=== PATIENT | female | born 1980 | race Caucasian/White ===

== ENCOUNTER 2018-11-09 19:18 | Emergency (ER) | payer MEDICAID ==
[2018-11-09 19:42] VITALS: BP 126/85
[2018-11-09] MEDS ORDERED: Acetaminophen/HYDROcodone 325-5 MG Tab PO ONE (19:48)
--- NOTE | 2018-11-09 20:02 | EDM.PDOC ---
ED HPI GENERAL MEDICAL PROBLEM - General Chief Complaint: GYMNASTICS COACH Problem Stated Complaint: POSSIBLE MISCARRIAGE Time Seen by Provider: 11/09/18 19:35 - History of Present Illness INITIAL COMMENTS - FREE TEXT/NARRATIVE: Patient is at approximately 5 weeks AOG presented to the ED because of vaginal bleeding and cramping. It started as spotting and later today became klike menses. - Related Data Allergies Allergy/AdvReac Type Severity Reaction Status Date / Time diphenhydramine HCl Allergy Rash Verified 11/09/18 19:42 [From Benadryl] influenza virus vaccine, Allergy Nausea and Verified 11/09/18 19:42 specific Vomiting [Influenza Virus Vacc,Specific] morphine Allergy Rash Verified 11/09/18 19:43 Home Meds: Home Meds Acetaminophen/HYDROcodone [Milton 325-5 MG] 1 tab PO Q4H PRN #10 tab 11/09/18 [Rx ] Vit No.124/Iron/FA [ Vitamin Tablet] 1 each PO DAILY 11/09/18 [ History] Past Medical History - Past Health History Medical/Surgical History: Denies Medical/Surgical History Social & Family History - Family History Family Medical History: Noncontributory ED ROS GENERAL - Review of Systems Review Of Systems: See Below Constitutional: Reports: No Symptoms HEENT: Reports: No Symptoms Respiratory: Reports: No Symptoms Cardiovascular: Reports: No Symptoms Endocrine: Reports: No Symptoms GI/Abdominal: Reports: No Symptoms : Reports: Other (vaginal bleeding) Musculoskeletal: Reports: No Symptoms Skin: Reports: No Symptoms ED EXAM - Physical Exam Exam: See Below Exam Limited By: No Limitations General Appearance: Alert, WD/WN, No Apparent Distress Ears: Normal External Exam, Normal Canal, Hearing Grossly Normal Nose: Normal Inspection, Normal Mucosa Throat/Mouth: Normal Inspection, Normal Lips, Normal Teeth Head: Atraumatic, Normocephalic Neck: Normal Inspection, Supple, Non-Tender, Full Range of Motion Respiratory/Chest: No Respiratory Distress, Lungs Clear, Normal Breath Sounds Cardiovascular: Normal Peripheral Pulses, Regular Rate, Rhythm, No Edema, No JVD , Diastolic Murmur GI/Abdominal Exam: Normal Bowel Sounds, Soft, Non-Tender, Pelvis Stable Course - Vital Signs Text/Narrative:: beta HCG quantitative-see result norco 5 mg for pain Last Recorded V/S: Last Vital Signs Temp 36.9 C 11/09/18 19:30 Pulse 76 11/09/18 19:30 Resp 16 11/09/18 19:30 BP 126/85 11/09/18 19:30 Pulse Ox 100 11/09/18 19:30 - Orders/Labs/Meds Orders: Active Orders 24 hr Category Date Time Status HCG QUANTITATIVE [CHEM] Stat Lab 11/09/18 19:37 Ordered Meds: Medications Discontinued Medications Generic Name Dose Route Start Last Admin Trade Name Christin PRN Reason Stop Dose Admin Hydrocodone Bitart/Acetaminophen 1 tab 11/09/18 19:48 Milton 325-5 Mg PO 11/09/18 19:49 ONETIME ONE Departure - Departure Time of Disposition: 20:00 Disposition: Home, Self-Care 01 Condition: Good Clinical Impression: Threatened - Discharge Information Prescriptions: Acetaminophen/HYDROcodone [Milton 325-5 MG] 1 tab PO Q4H PRN #10 tab PRN Reason: Pain Instructions: Vaginal Bleeding During , First Trimester Referrals: PCP,Not In Area [Primary Care Provider] - Forms: ED Department Discharge Additional Instructions: please read discharge instructions on bleeding during the first trimester norco take 1 tablet every 4-6 hours as needed for pain follow up with your OB doctor this coming week - My Orders Last 24 Hours: My Active Orders 11/09/18 19:37 HCG QUANTITATIVE [CHEM] Stat - Assessment/Plan Last 24 Hours: My Active Orders 11/09/18 19:37 HCG QUANTITATIVE [CHEM] Stat
== END 2018-11-09 22:15 | disposition home or self-care (01) ==
LOC: FB.ED 19:18
DX: O20.0 Threatened abortion (principal); Z88.5 Allergy status to narcotic agent; Z88.7 Allergy status to serum and vaccine; Z88.8 Allergy status to other drugs, medicaments and biological substances; Z3A.01 Less than 8 weeks gestation of pregnancy
CPT/HCPCS: 36415; 84702; 99283; A9270